=== PATIENT | female | born 1960 | race Caucasian/White ===

== ENCOUNTER 2017-02-21 07:40 | Day surgery (SDC) | payer OTHER ==
[~2017-02-21 07:40] MED LIST: ACETAMINOPHEN 500 MG TABLET PO PRN; HYDROmorphone HCL 2 MG/ML VIAL IV PRN; MAG HYDROX/ALUMINUM HYD/SIMETH 30 ML UDC PO PRN; MAGNESIUM HYDROXIDE 30 ML UDC PO PRN; ONDANSETRON HCL/PF 2 MG/ML VIAL IV PRN; PROMETHAZINE HCL 25 MG in DEXTROSE 5 % IN WATER 50 ML IV PRN; RINGER'S SOLUTION,LACTATED 1,000 ML IV PRN; ZOLPIDEM TARTRATE 5 MG TABLET PO PRN; ceFAZolin SODIUM 1 GM VIAL IV PRN; diphenhydrAMINE HCL 50 MG/ML VIAL IV PRN
--- OUTSIDE RECORDS SUMMARY | 2017-02-21 07:44 | XMS REPORT | Continuity of Care Document ---
:1960 Author Organization [employer] [place] [address] Care Team Providers Name Role Phone Morteza Orellana Primary Care Provider [phone] Source Comments This disclosure is being made pursuant to the [employer] program and maynot contain all information available regarding this patient.[employer] Active Allergies and Adverse Reactions Allergen Noted Date Severity Reactions Comments Codeine 12/04/2014 High Hives Flagyl 12/04/2014 Medium Nausea And Vomiting Percocet 12/04/2014 Medium Itching Current Medications Be aware that medications may not be up to date as of this document. Alwaysverify current medications with the patient. Prescription Sig. Disp. Refills Start Date End Date Status dexlansoprazole Take 60 mg by 06/03/2011 Active (DEXILANT) 60 MG mouth daily. capsule venlafaxine HCl Take 75 mg by 06/03/2011 Active (EFFEXOR XR) 75 MG 24 mouth daily. hr capsule Probiotic Product Take 1 capsule by Active (PROBIOTIC DAILY PO) mouth daily. TURMERIC PO Take 1 capsule by Active mouth daily. Calcium Take 1 tablet by Active Citrate-Vitamin D mouth daily. (CITRACAL + D PO) Multiple Take 1 tablet by Active Vitamins-Minerals mouth daily. (MULTIVITAL) tablet Winton-3 Fatty Acids Take 3 capsules by Active (OMEGA 3 PO) mouth daily. Unclassified (UNABLE Take 1 tablet by Active TO FIND) mouth daily. Med Name: Advanced cholesterol solutions Artificial Tears Apply 1 drop to Active 0.1-0.3 % SOLN eye as needed. oxyCODONE-acetaminophe Take 1 tablet by 30 tablet 0 12/09/2014 Active n (PERCOCET) 5-325 MG mouth every 4 per tablet (four) hours as needed for Pain. HYDROcodone-acetaminop Take 1 tablet by 30 tablet 0 12/10/2014 Active hen (NORCO) 5-325 MG mouth every 6 per tablet (six) hours as needed for Pain. Active Problems Problem Noted Date Acute diverticulitis 12/04/2014 Social History Tobacco Use Types Packs/Day Years Used Date Never Smoker Smokeless Tobacco: Never Used Alcohol Use Drinks/Week oz/Week Comments No Last Filed Vital Signs Vital Sign Reading Time Taken Blood Pressure 128/65 12/10/2014 7:31 AM CDT Pulse 86 12/10/2014 7:31 AM CDT Temperature 36.9 C (98.4 F) 12/10/2014 7:31 AM CDT Respiratory Rate 16 12/10/2014 7:31 AM CDT Height 1.651 m (5' 5") 12/04/2014 3:11 PM CDT Weight 79.8 kg (175 lb 14.8 oz) 12/04/2014 3:11 PM CDT Body Mass Index 29.28 12/04/2014 3:11 PM CDT Oxygen Saturation 98% 12/10/2014 7:31 AM CDT Plan of Care Health Maintenance Due Date Last Done Comments Hepatitis C Screening 1977 Tetanus/Pertussis (1 - Tdap) 1978 Pap Smear 1980 Mammogram 1999 Well Adult Visit 2009 Retired-INFLUENZA VACCINE 05/09/2016 Colonoscopy 06/10/2021 06/10/2011 Results from Last 3 Months Not on file
--- OUTSIDE RECORDS SUMMARY | 2017-02-21 07:44 | XMS REPORT | Continuity of Care Document ---
:1960 Author Organization [facility] ([facility]) Address [address] [place] [address] Phone [phone] Care Team Providers Name Role Phone Johanna Carranza Primary Care Provider [phone] Source Comments This disclosure is being made pursuant to the Care Everywhere program, applicable federal and state laws, and may not contain all informaitonavailable regarding this patient.[facility] ([facility]) Active Allergies and Adverse Reactions Allergen Noted Date Severity Reactions Comments Codeine 03/28/2010 Rash Metronidazole 03/14/2013 Nausea & Vomiting NOT A CRITICAL REACTION. Oxycodone-Acetaminophen 06/19/2012 Pruritus Current Medications Prescription Sig. Disp. Refills Start Date End Date Status OTHER 1 mg daily. 10 mg 5 11/04/2012 Active Testosterone Cream 1% (10mg/mL) to apply 1 mg (0.1 mL) to wrist Indications: LIBIDO CHANGES venlafaxine (EFFEXOR Take 1 Cap by mouth 90 Cap 3 10/29/2013 Active XR) 75 mg XR capsule daily. Indications: MAJOR DEPRESSIVE DISORDER dexlansoprazole Take 1 Cap by mouth 30 Cap 11 02/18/2014 Active (DEXILANT) [address] daily[address] Indications: capsule GASTROESOPHAGEAL REFLUX HYDROMORPHONE 4 mg Take 1 tablet (4 mg 30 tablet 0 08/23/2016 Active tablet total) by mouth every 4 hours as needed for Pain. Active Problems Problem Noted Date Labial cyst 05/23/2014 Vaginal lesion 05/23/2014 Vaginal irritation 11/17/2012 Diverticulosis of colon 06/19/2012 GERD (gastroesophageal reflux disease) 06/19/2012 Depression 06/19/2012 Hyperlipidemia 06/19/2012 Immunizations Name Dates Previously Given Next Due Influenza, PF 08/12/2012 Social History Tobacco Use Types Packs/Day Years Used Date Never Smoker Smokeless Tobacco: Never Used Alcohol Use Drinks/Week oz/Week Comments No Last Filed Vital Signs Vital Sign Reading Time Taken Blood Pressure 126/83 08/23/2016 5:04 PM [facility] Pulse 90 08/23/2016 5:04 PM [facility] Temperature 37.1 C (98.7 F) 08/23/2016 3:49 PM [facility] Respiratory Rate 16 08/23/2016 5:04 PM [facility] Height 1.632 m (5' 4.25") 06/19/2012 1:46 PM CDT Weight 79.47 kg (175 lb 3.2 oz) 05/17/2014 3:20 PM CDT Body Mass Index 29.84 05/17/2014 3:20 PM CDT Oxygen Saturation 98% 08/23/2016 5:04 PM [facility] Plan of Care Health Maintenance Due Date Last Done Comments HCV Screening 1960 Hepatitis B Vaccine (1 of 3 - Primary Series) 1960 Tdap Vaccine 1970 Lipid Disorder Screening 1977 MMR Vaccine 1977 Td Vaccine 1977 Mammogram 1999 Colonoscopy 02/28/2009 Cervical Cancer Screening 01/28/2016 01/27/2013 Influenza Vaccine: Seasonal (#1) 04/08/2016 08/12/2012 Results from Last 3 Months Not on file
[2017-02-21] MEDS ORDERED: RINGER'S SOLUTION,LACTATED 1,000 ML IV ONE ×2 (08:16→10:10)
[2017-02-21] MEDS ORDERED: ceFAZolin SODIUM 1 GM VIAL IV ONE (09:10)
[2017-02-21] MEDS ORDERED: BUPIVACAINE HCL 50 ML VIAL IJ ONE ×2 (10:50)
[2017-02-21] MEDS ORDERED: RINGER'S SOLUTION,LACTATED 1,000 ML IV PRN (12:13)
[2017-02-21] MEDS ORDERED: HYDROcodone/ACETAMINOPHEN 1 EACH TABLET PO PRN (12:20)
[2017-02-21 15:02] VITALS: BP 146/78
[2017-02-21] MEDS ORDERED: SENNOSIDES/DOCUSATE SODIUM 1 TAB TABLET PO SCH (21:00)
== END 2017-02-21 07:41 | disposition home or self-care (01) ==
LOC: AMB 07:40
PROVIDERS: ATTEND Orthopaedic Surgery
PROC: 0SGM04Z Fusion of Right Metatarsal-Phalangeal Joint with Internal Fixation Device, Open Approach (ICD-10-PCS; principal; 2017-02-21 09:20)
PROC: 0QPJ04Z Removal of Internal Fixation Device from Right Fibula, Open Approach (ICD-10-PCS; 2017-02-21 09:20)
DX: M19.071 Primary osteoarthritis, right ankle and foot (principal); M20.21 Hallux rigidus, right foot; T84.84XA Pain due to internal orthopedic prosthetic devices, implants and grafts, initial encounter; K21.9 Gastro-esophageal reflux disease without esophagitis; K58.9 Irritable bowel syndrome, unspecified; M79.7 Fibromyalgia; Z68.30 Body mass index [BMI] 30.0-30.9, adult
CPT/HCPCS: 20680; 28750; C1713; J2405

== ENCOUNTER 2017-04-04 18:46 | Emergency (ER) | payer OTHER ==
--- OUTSIDE RECORDS SUMMARY | 2017-04-04 19:07 | XMS REPORT | Clinical Summary ---
:1960 Author Organization [employer] [place] [address] Care Team Providers Name Role Phone Unavailable Primary Care Provider Unavailable Source Comments This disclosure is being made pursuant to the [email or web address] program and maynot contain all information available regarding this patient.[facility] Allergies Active Allergy Reactions Severity Noted Date Comments Codeine Hives High 12/04/2014 Metronidazole Nausea And Vomiting Medium 12/04/2014 Oxycodone-Acetaminophen Itching Medium 12/04/2014 Current Medications Be aware that medications may [...] by Active Vitamins-Minerals mouth daily. (MULTIVITAL) tablet Mertzon-3 Fatty Acids Take 3 capsules by Active [...] Problems Problem Noted Date Acute diverticulitis 12/04/2014 Family History Medical History Relation Name Comments COPD Father Colon cancer Mother High cholesterol Mother Migraines Sister Relation Name Status Comments Brother Alive Father Mother Alive Sister Alive Sister Alive Social History Tobacco Use Types Packs/Day Years Used Date Never Smoker Smokeless Tobacco: Never Used Alcohol Use Drinks/Week oz/Week Comments No Sex Assigned at Date Recorded Not on file Last Filed Vital Signs Vital Sign Reading Time Taken Blood Pressure 128/65 12/10/2014 7:31 AM CDT Pulse 86 12/10/2014 7:31 AM CDT Temperature 36.9 C (98.4 F) 12/10/2014 7:31 AM CDT Respiratory Rate 16 12/10/2014 7:31 AM CDT Oxygen Saturation 98% 12/10/2014 7:31 AM CDT Inhaled Oxygen Concentration - - Weight 79.8 kg (175 lb 14.8 oz) 12/04/2014 3:11 PM CDT Height 165.1 cm (5' 5") 12/04/2014 3:11 PM CDT Body Mass Index 29.28 12/04/2014 3:11 PM CDT Plan of Treatment Health Maintenance Due Date Last Done Comments Hepatitis C Screening 1977 Tetanus/Pertussis (1 - Tdap) 1978 Pap Smear 1980 Mammogram 1999 Well Adult Visit 2009 Retired-INFLUENZA VACCINE 05/09/2016 Colonoscopy 06/10/2021 06/10/2011 Implants Implanted Type Area Tea Taster Device Expiration Date Model / Identifier Serial / Lot Pwdr Hemo Absorb Arabella - [id number] Abdomen MEDAFOR 11/05/2017 [id number] / Implanted:Qty: 1 on 12/07/2014 by Clemente Pink MD / [id number] Results Not on filefrom Last 3 Months
--- NOTE | 2017-04-04 19:22 | ERNOTE ---
Headache ER HPI - Narrative Date of Service: 04/04/17 - General Presenting Symptoms: headache Time Seen by Provider: 04/04/17 18:58 Source: patient Exam Limitations: no limitations - Immun/Allergies/Home Medications Immunizations: IMMUNIZATION HX Immunizations Up to Date Yes Allergies/Adverse Reactions: Allergies acetaminophen [From Percocet] Adverse Reaction (Mild, Verified 09/04/16 11:06) Itching codeine Adverse Reaction (Mild, Verified 09/04/16 11:06) RASH morphine Adverse Reaction (Mild, Verified 09/04/16 11:06) nausea/vomiting oxycodone HCl [From Percocet] Adverse Reaction (Mild, Verified 09/04/16 11:06) Itching Home Medications: HOME MEDICATIONS Venlafaxine HCl [Effexor Xr] 75 mg PO DAILY 05/24/14 [Last Taken 09/04/16 08:00] Dexlansoprazole [Dexilant] 60 mg PO DAILY 01/30/17 [Last Taken Unknown] Ibuprofen [Motrin] 200 mg PO Q6H PRN 01/30/17 [Last Taken Unknown] - History of Present Illness Narrative: Patient presents to the ED for headache. She woke up this morning and had a left frontal headache and noticed her left eye had a subconjunctival hemorrhage. She relates that she had a spontaneous left subconjunctival hemorrhage a couple of weeks ago that resolved. This is recurrent but with headache/frontal this time. No trauma. No focal N/T/W. No fever. No other acute vision changes. no other easy bruising or bleeding. She spoke with someone about this and was told to go to the ED. She woke up with this this morning. Timing of Headache: gradual Context Headache: Absent: meningitis exposure, recent head injury < 24 hrs ago Quality: Present: achy Severity Maximum: Present: moderate Headache frequency: Absent: frequent headaches, chronic headaches Review of Systems - Review of Systems Constitutional: Absent: fever EYE: Present: see HPI ENT: Present: no symptoms reported Respiratory: Absent: shortness of breath Cardiology: Absent: chest pain Gastrointestinal/Abdominal: Absent: abdominal pain Neurological: Absent: weakness, numbness, tingling - Patient's Past Medical History Patient History - Medical: Anxiety, Fibromyalgia, GERD, Other Patient History - Cardiac/Respiratory: No pertinent hx Patient History - Cancer: No Hx of Cancer Patient History - Surgical Procedures: Cataracts, Colon Resection, EGD, Other, Hernia Repair Patient History - Other: None LMP (females 10-50): Menopausal - Family History Father Family History - Medical: , Other Family History - Cardiac/Respiratory: No pertinent hx Family History - Cancer: Liver Mother Family History - Medical: No pertinent hx, Other Family History - Cardiac/Respiratory: No pertinent hx Family History - Cancer: No pertinent family hx - Social History Living Situations: spouse Abuse History: No History of abuse Psych History: Hx of Anxiety Does anyone smoke in the home?: No Smoking Status: Never smoker Alcohol Use: none Drug Use: none - Immunizations Immunizations Up to Date: Yes Physical Exam - Physical Exam General Appearance: Present: alert, no apparent distress Head Exam: Present: normal inspection, no evidence of injury Eye Exam: PERRL: bilateral, EOMI: bilateral, Other: left - Subconjunctival hemorrhage left. Surgically replaced lens. No FB. no hyphema or hypopeon. No other clear acute abnormalities by exam. Ears, Nose, Throat: Present: other - mild left temopral artery tenderness. 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 Absent: facial droop, motor weakness Skin Exam: Present: normal color, warm/dry. Absent: skin rash ED Progress - Vital Signs Patient's Vital Signs:: I have reviewed the patient's vital signs. Vital Signs: Vital Signs 04/04/17 18:50 Temperature 36.8 C Pulse Rate 80 Respiratory 14 Rate Blood Pressure 152/96 O2 Sat by Pulse 98 Oximetry - Progress/Reassessment Chief Complaint: Headache - Transfer of Care Physician Sign Out: Musa Barnett Receiving Physician: Aixa Pickard Pending Results: CT/MRI results, Labs Departure Clinical Impression: Headache - Departure Referrals: Morteza Orellana DO [Primary Care Provider] -
[2017-04-04 20:11] LABS: Hematocrit 43.6 % (37.0-47.0); Hemoglobin 14.1 gm/dL (12.5-16.0); Mean Cell Volume 84.8 fl (78-100); Mean Corpuscular Hemoglobin 27.4 pg (27-31); Mean Corpuscular Hgb Conc 32.3 g/dl (32-36); Mean Platelet Volume 10.6 fl (6.0-9.5); Neutrophil # 3.8 K/mm3 (1.3-6.0); Neutrophil % 49.7 % (42-75.0); Platelet Count 242 K/mm3 (150-450); Red Blood Count 5.14 M/mm3 (4.2-5.4); Red Cell Distribution Width 14.2 % (11.5-14.0); White Blood Count 7.7 K/mm3 (4.0-10.5)
[2017-04-04 20:21] LABS: Prothrombin Time (Patient) 9.7 Seconds (9.4-11.4)
[2017-04-04 20:22] LABS: INR 0.93 INR (0.90-1.10); Partial Thrombolplastin Time 24.7 Seconds (24-32)
[2017-04-04 20:23] LABS: Albumin * 3.8 gm/dl (3.4-5.0); Anion Gap 15.1 mmol/L (6.8-13.8); BUN/Creatinine Ratio 21.1 (9.0-21.6); Bilirubin, Total 0.3 mg/dL (0.0-1.1); CRP 0.2 mg/dL (0.0-0.9); Ca. Corrected For Albumin 8.8 mg/dL (8.4-10.2); Carbon Dioxide 25.6 mmol/L (24-32.6); Potassium 3.7 mmol/L (3.4-4.6); Total Protein 7.7 gm/dL (6.2-8.2)
[2017-04-04 21:41] VITALS: BP 157/83
== END 2017-04-04 22:46 | disposition home or self-care (01) ==
LOC: ER 18:46
DX: R51 Headache (principal); F41.9 Anxiety disorder, unspecified; K21.9 Gastro-esophageal reflux disease without esophagitis